=== PATIENT | female | born 1935 | race Two or more races ===

== ENCOUNTER 2021-03-18 11:23 | Inpatient (IN) | payer OTHER ==
[~2021-03-18] VITALS: Ht 188 cm; Wt 72.1 kg
[2021-03-18 12:58] LABS: Hemoglobin 13.7 g/dL (12.2-16.2)
[2021-03-18 13:00] LABS: Hematocrit 39.5 % (36.0-46.0); Mean Corpuscular Hgb Conc. 34.7 g/dL (32.0-36.0); Mean Corpuscular Volume 98.1 fL (80.0-100.0); Red Blood Cells 4.03 10^6/uL (4.0-5.20); Red Cell Distribution Width 13.6 % (11.8-14.3)
[2021-03-18 13:04] LABS: White Blood Cell 1.5 10^3/uL (4.4-10.8)
[2021-03-18 13:06] LABS: Basophils % (manual) 0 (0.0-2.0); Blast Cells 0; Myelocytes % 0; Promyelocytes % 0; Reactive Lymphocytes 0
[2021-03-18 13:12] LABS: Albumin 2.7 g/dL (3.4-5.0); Anion Gap 11 (5-15); Blood Urea Nitrogen 37 mg/dL (7-18); Calcium 8.6 mg/dL (8.5-10.1); Carbon Dioxide 18 mmol/L (21-32); Chloride 107 mmol/L (98-107); Glucose 78 mg/dL (74-106); Potassium 3.5 mmol/L (3.5-5.1); Sodium 136 mmol/L (136-145)
[2021-03-18 13:17] LABS: Alanine Aminotransferase 17 U/L (13-56); Alkaline Phosphatase 52 U/L (45-117); Aspartate Aminotransferase 22 U/L (15-37); BUN/Creatinine Ratio 18.4; Bilirubin, Total 0.5 mg/dL (0.2-1.0); GFR African American 30 mL/min; GFR Non-African American 25 mL/min; Total Protein 6.7 g/dL (6.4-8.2)
[2021-03-18 16:09] LABS: Band Neutrophils % (manual) 6; Eosinophils % (manual) 1 (0-7); Lymphocytes % (manual) 14 (10.0-50.0); Metamyelocytes % 1; Monocytes % (manual) 3 (0-12)
[2021-03-18] MEDS ORDERED: MORPHINE SULFATE INJECTION 2 MG/ML SYRG IV PRN ×2 (21:00)
[2021-03-18] MEDS ORDERED: ONDANSETRON HCL 4 MG/2 ML VIAL IV PRN (21:00)
[2021-03-18] MEDS ORDERED: NITROGLYCERIN 0.4 MG SL TAB SL PRN (21:00)
[2021-03-18] MEDS ORDERED: cefTRIAXone 1GM/50ML D5W 50 ML IV SCH (21:30)
[2021-03-18] MEDS ORDERED: NICOTINE 21MG/24 HR TOPICAL PATCH TD ONE (21:45)
[2021-03-18 21:54] LABS: INR 1.12 (0.9-1.15)
[2021-03-18] MEDS ORDERED: AZITHROMYCIN 500MG/ 250ML 250 ML IV SCH (22:00)
[2021-03-18] MEDS ORDERED: ALBUTEROL SULF HFA 90MCG INH 200DOSE IN SCH (22:00)
[2021-03-18 22:52] VITALS: BP 109/64
[2021-03-18] MEDS: methylPREDNISolone SOD SUCC 125 MG/2 ML VL IV SCH (23:18)
[2021-03-19] VITALS (8 sets, daily range): BP systolic 66–104; BP diastolic 42–73
[2021-03-19] MEDS ORDERED: IPRATROPIUM BROM 0.5 MG/2.5ML INH SOL NEB SCH
[2021-03-19] MEDS ORDERED: ALBUTEROL SULF 2.5 MG/0.5ML(0.5%) NEB SOLN NEB SCH
[2021-03-19] MEDS ORDERED: METOPROLOL TARTRATE 25 MG TAB PO ONE ×2 (01:15→02:15)
[2021-03-19] MEDS ORDERED: SOD CHL 0.45% 1,000 ML IV SCH (01:15)
[2021-03-19] MEDS ORDERED: ETOMIDATE (2MG/ML) 20ML VIAL IV ONE ×2 (02:19→02:45)
[2021-03-19] MEDS ORDERED: SUCCINYLCHOLINE CHLORIDE 20 MG/ML 10ML VIAL IV ONE ×2 (02:19→02:45)
[2021-03-19 02:20] LABS: Urine Bacteria FEW /hpf (None Seen); Urine Blood 1+ /uL (Negative); Urine Hyaline Cast FEW /lpf (0 - 2); Urine Mucus FEW (None Seen); Urine Specific Gravity 1.021 (1.001-1.035); Urine WBC 35 /hpf (0 - 5); Urine WBC Clumps PRESENT /hpf (None Seen)
[2021-03-19] MEDS ORDERED: NOREPINEPHRINE 8 MG/250ML KIT 250 ML IV ONE (02:31)
[2021-03-19] MEDS ORDERED: PROPOFOL 100 ML IV ONE (02:31)
[2021-03-19] MEDS ORDERED: PROPOFOL 100 ML IV SCH (02:45)
[2021-03-19] MEDS ORDERED: NOREPINEPHRINE 8 MG/250ML KIT 250 ML IV SCH (02:45)
[2021-03-19] MEDS ORDERED: AMIODARONE HCL 150 MG in D5W 5% 100 ML IV ONE (03:00)
[2021-03-19] MEDS ORDERED: AMIODARONE HCL (50 MG/ ML) 3 ML VIAL IV ONE (03:26)
[2021-03-19] MEDS ORDERED: SODIUM CHLORIDE 0.9% 1,000 ML IV SCH (04:00)
[2021-03-19] MEDS ORDERED: AMIODARONE 450mg/250ml AE 250 ML IV SCH ×2 (04:15→09:15)
[2021-03-19] MEDS ORDERED: SODIUM BICARBONATE 8.4 % INJ 50ML VIAL IV ONE ×3 (04:30→13:30)
[2021-03-19] MEDS ORDERED: SODIUM BICARBONATE 8.4% INJ 50ML SYRINGE ONE (04:39)
[2021-03-19] MEDS: MIDAZOLAM DRIP 50 mg/50mL 50 ML IV SCH ×2 (04:51→08:34)
[2021-03-19] MEDS ORDERED: ALBUTEROL SULF 2.5 MG/0.5ML(0.5%) NEB SOLN NEB PRN (05:45)
[2021-03-19] MEDS: methylPREDNISolone SOD SUCC 125 MG/2 ML VL IV SCH (06:33)
[2021-03-19] MEDS ORDERED: DEXTROSE (50%) 50ML SYRG IV PRN (07:30)
[2021-03-19] MEDS: ACCU-CHEK COMFORT CURVE STRIP VI SCH ×2 (08:00→12:30)
[2021-03-19] MEDS: InsuLIN REG 1unit/0.01ml Soln (100units/ml) SC SCH ×2 (08:00→12:30)
[2021-03-19 08:19] LABS: Hemoglobin 13.8 g/dL (12.2-16.2); White Blood Cell 2.1 10^3/uL (4.4-10.8)
[2021-03-19 08:21] LABS: Hematocrit 40.7 % (36.0-46.0); Mean Corpuscular Hemoglobin 34.5 pg (28.0-32.0); Mean Corpuscular Volume 101.4 fL (80.0-100.0); Red Blood Cells 4.01 10^6/uL (4.0-5.20)
[2021-03-19 08:27] LABS: Basophils % (manual) 0 (0.0-2.0); Blast Cells 0; Eosinophils % (manual) 0 (0-7); Myelocytes % 0; Promyelocytes % 0; Reactive Lymphocytes 0
[2021-03-19 08:37] LABS: Calcium 8.3 mg/dL (8.5-10.1)
[2021-03-19 08:38] LABS: BUN/Creatinine Ratio 16.9
[2021-03-19 08:41] LABS: Bilirubin, Total 0.7 mg/dL (0.2-1.0); Total Protein 6.3 g/dL (6.4-8.2)
[2021-03-19 09:05] LABS: Potassium 4.3 mmol/L (3.5-5.1)
[2021-03-19] MEDS ORDERED: VASOPRESSIN 50 UNITS in D5W 5% 247.5 ML IV SCH (09:45)
[2021-03-19] MEDS ORDERED: ASCORBIC ACID 500 MG TAB PO SCH (10:00)
[2021-03-19] MEDS ORDERED: ENOXAPARIN SOD 30 MG/0.3 ML SYRINGE SC SCH (10:00)
[2021-03-19] MEDS ORDERED: ZINC SULFATE 220mg CAP or TAB PO SCH (10:00)
[2021-03-19] MEDS ORDERED: PANTOPRAZOLE 40 MG/10 ML VIAL INJ IV SCH (10:00)
[2021-03-19] MEDS ORDERED: PHENYLEPHRINE IV 250 ML IV SCH (11:15)
[2021-03-19] MEDS ORDERED: SODIUM BICARB 50ML SYR 100 ML in SODIUM CHLORIDE 0.9% 1,000 ML IV SCH (12:30)
[2021-03-19] MEDS ORDERED: methylPREDNISolone SOD SUCC 40 MG/ML VL IV SCH (14:00)
[2021-03-19] MEDS ORDERED: DEXTROSE 50% SYRINGE 50 ML IV ONE ×2 (14:06→15:20)
[2021-03-19] MEDS ORDERED: DEXTROSE (50%) 50ML SYRG IV ONE (14:30)
[2021-03-19] MEDS ORDERED: D5W/SOD CHLO 0.9% 1,000 ML IV SCH (14:30)
[2021-03-19 14:48] LABS: Band Neutrophils % (manual) 33; Lymphocytes % (manual) 32 (10.0-50.0); Metamyelocytes % 1; Monocytes % (manual) 20 (0-12)
[2021-03-19] MEDS ORDERED: EPINEPHrine HCL 1 MG/10 ML SYRG ONE (15:20)
[2021-03-19] MEDS ORDERED: DEXTROSE 50% SYRINGE 100 ML IV ONE (15:24)
[2021-03-19] MEDS ORDERED: DEXTROSE 50% IV ONE (15:28)
[2021-03-19] MEDS ORDERED: EPINEPHrine HCL 1 MG/10 ML SYRG IV ONE (21:41)
== END 2021-03-19 15:29 | DRG 208 ==
LOC: ER 11:23 → TELE 20:52 → OBSVTOIN 20:52 → OVERFLOW 03-19 03:00
PROVIDERS: ADMIT Internal Medicine; ATTEND Internal Medicine
PROC: 5A1935Z Respiratory Ventilation, Less than 24 Consecutive Hours (ICD-10-PCS; principal; 2021-03-19)
PROC: 0BH17EZ Insertion of Endotracheal Airway into Trachea, Via Natural or Artificial Opening (ICD-10-PCS; 2021-03-19)
PROC: 5A12012 Performance of Cardiac Output, Single, Manual (ICD-10-PCS; 2021-03-19)
PROC: 06HM33Z Insertion of Infusion Device into Right Femoral Vein, Percutaneous Approach (ICD-10-PCS; 2021-03-19)
PROC: B54BZZA Ultrasonography of Right Lower Extremity Veins, Guidance (ICD-10-PCS; 2021-03-19)
DX: U07.1 COVID-19 (principal); J96.00 Acute respiratory failure, unspecified whether with hypoxia or hypercapnia; J12.82 Pneumonia due to coronavirus disease 2019; J44.1 Chronic obstructive pulmonary disease with (acute) exacerbation; E87.2 Acidosis; J44.0 Chronic obstructive pulmonary disease with (acute) lower respiratory infection; R57.9 Shock, unspecified; F17.210 Nicotine dependence, cigarettes, uncomplicated; I46.9 Cardiac arrest, cause unspecified; I48.91 Unspecified atrial fibrillation; Z90.49 Acquired absence of other specified parts of digestive tract; R00.0 Tachycardia, unspecified
CPT/HCPCS: 36415; 36600; 71045; 80053; 81001; 82805; 82962; 83880; 84484; 85007; 85027; 85379; 85610; 87040; 87070; 87077; 87186; 87205; 87426; 92950; 93005; 93306; 94002; 94003; 94640; 96365; 96366; 96367; 96368; 96372; 96375; C9113; G0378; J0330; J0696; J2250; J2704; J7042; J7060